=== PATIENT | male | born 1970 | race Caucasian/White ===

== ENCOUNTER 2018-08-21 06:42 | Day surgery (SDC) | payer OTHER, MEDICARE, MEDICAID ==
[~2018-08-21] VITALS: Ht 165.1 cm; Wt 79.5 kg
[~2018-08-21 06:42] MED LIST: ACET-784 PO; ATOR10TA84 PO; CALC-1062 PO; CHLO4TAB96 PO; DENO60DI SQ; DIPH25 PO; DOCU250C91 PO; IBUP-2070 PO; LACT30L PO; LAMO25 PO; LINA145C PO; LOSA50TA64 PO; MULT-1203 PO; RINGERS SOLUTION,LACTATED 1,000 ML IV ONE; SENN8.6T90 PO; [UNRECOGNIZED DRUG - CODE] PO
[2018-08-21] MEDS ORDERED: RINGERS SOLUTION,LACTATED 1,000 ML IV ONE (07:00)
[2018-08-21 07:52] LABS: BASOPHILS % (AUTO) 0.4 % (0.0-2.0); HEMATOCRIT 38.4 % (41-53); HEMOGLOBIN 12.8 g/dL (13.5-17.5); LYMPHOCYTES # (AUTO) 1.7 K/uL (1.0-4.8); LYMPHOCYTES % (AUTO) 25.5 % (22.0-44.0); MEAN CORPUSCULAR HEMOGLOBIN 28.2 pg (26.0-34.0); MEAN CORPUSCULAR HGB CONC 33.3 G/dL (31.0-37.0); MEAN CORPUSCULAR VOLUME 85 fL (80-100); MONOCYTES # (AUTO) 0.6 K/uL (0.1-1.0); MONOCYTES % (AUTO) 9.4 % (2.0-9.0); NEUTROPHILS % (AUTO) 62.7 % (40.0-70.0); PLATELET COUNT (AUTO) 255 K/uL (150-450); RED BLOOD CELL COUNT(AUTO) 4.55 MIL/uL (4.50-5.90); RED CELL DISTRIBUTION WIDTH 12.8 % (11.5-14.5)
[2018-08-21 08:06] LABS: INR 0.9 (0.9-1.1); PROTHROMBIN TIME 9.8 SEC (9.4-11.6)
[2018-08-21 08:19] LABS: ANION GAP 10 mmol/L (8-16); CALCIUM, TOTAL 9.4 mg/dL (8.8-10.5); CARBON DIOXIDE 27 mmol/L (22-29); CHLORIDE 101 mmol/L (98-107); CREATININE 1.05 mg/dL (0.60-1.30); GLOMERULAR FILTR. RATE CALC > 60 mL/min (>60); GLUCOSE,RANDOM 89 mg/dL (70-110); POTASSIUM 4.1 mmol/L (3.5-5.1); SODIUM SERUM 138 mmol/L (136-145); UREA NITROGEN, BLOOD 18 mg/dL (7-18)
[2018-08-21 08:25] LABS: ALANINE AMINOTRANSFERASE 39 U/L (12-78); ALBUMIN 4.5 g/dL (3.4-5.0); ALKALINE PHOSPHATASE 109 U/L (46-116); ASPARTATE AMINOTRANSFERASE 25 U/L (15-37); BILIRUBIN,TOTAL 0.3 mg/dL (0.1-1.0)
[2018-08-21] MEDS ORDERED: PROPOFOL 1% 20 ML VIAL IVP ONE (12:00)
[2018-08-21] MEDS ORDERED: FentaNYL CITRATE-PF 100 MCG/2 ML VIAL IVP ONE (12:00)
[2018-08-21] MEDS ORDERED: MIDAZOLAM HCL 2 MG/2 ML VIAL IVP ONE (12:00)
[2018-08-21] MEDS ORDERED: LIDOCAINE/PF 2% 5 ML VIAL INJ ONE (12:00)
== END 2018-08-21 15:55 | disposition home or self-care (01) ==
LOC: SURGERY 06:42
PROVIDERS: ATTEND Dentist General Practice
DX: K05.30 Chronic periodontitis, unspecified (principal); K03.6 Deposits [accretions] on teeth; K03.89 Other specified diseases of hard tissues of teeth; I10 Essential (primary) hypertension; G40.909 Epilepsy, unspecified, not intractable, without status epilepticus; Z98.890 Other specified postprocedural states; M81.0 Age-related osteoporosis without current pathological fracture; D64.9 Anemia, unspecified; K21.9 Gastro-esophageal reflux disease without esophagitis; E66.3 Overweight
CPT/HCPCS: 36415; 41899; 71045; 80053; 85025; 85610; 85730; 93005; J2250; J2704; J3010; J3490; J7120

== ENCOUNTER → 2020-05-26 | Day surgery (SDC) | payer OTHER, MEDICARE, MEDICAID ==
[~2020-05-26] VITALS: Ht 165.1 cm; Wt 68.0 kg
[~2020-05-26] MED LIST changes: +AMPICILLIN SODIUM 1 GM/VIAL ONE; +DOCU-350 PO; -DOCU250C91 PO; +FentaNYL CITRATE PF 100 MCG/2 ML VIAL IVP ONE; +FentaNYL CITRATE PF 100 MCG/2 ML VIAL IVP PRN; +HYDROmorphone 2 MG/ML VIAL IVP PRN; -LAMO25 PO; +LAMO25TA25 PO; +LIDOCAINE/PF 2% 5 ML VIAL IM ONE; +LOSA50TA37 PO; -LOSA50TA64 PO; +MIDAZOLAM HCL 2 MG/2 ML VIAL IVP ONE; +ONDANSETRON HCL 4 MG/2 ML VIAL IVP ONE; +OXYGEN THERAPY IH SCH; +PROPOFOL 1% 20 ML VIAL IVP ONE; +SODIUM CHLORIDE 0.9% 0 ML ONE
[2020-05-26 07:35] LABS: BASOPHILS % (AUTO) 0.6 % (0.0-2.0); EOSINOPHILS % (AUTO) 1.3 % (1.0-6.0); HEMATOCRIT 37.3 % (41-53); HEMOGLOBIN 12.4 g/dL (13.5-17.5); LYMPHOCYTES # (AUTO) 1.9 K/uL (1.0-4.8); LYMPHOCYTES % (AUTO) 29.8 % (22.0-44.0); MEAN CORPUSCULAR HGB CONC 33.3 G/dL (31.0-37.0); MEAN CORPUSCULAR VOLUME 84 fL (80-100); MONOCYTES # (AUTO) 0.6 K/uL (0.1-1.0); NEUTROPHILS # (AUTO) 3.8 K/uL (1.8-7.7); NEUTROPHILS % (AUTO) 59.3 % (40.0-70.0); PLATELET COUNT (AUTO) 279 K/uL (150-450); RED BLOOD CELL COUNT(AUTO) 4.43 MIL/uL (4.50-5.90); RED CELL DISTRIBUTION WIDTH 13.2 % (11.5-14.5)
[2020-05-26 07:46] LABS: PROTHROMBIN TIME 10.3 SEC (9.4-11.6)
[2020-05-26 07:47] LABS: ANION GAP 11 mmol/L (8-16); CALCIUM, TOTAL 9.7 mg/dL (8.8-10.5); CARBON DIOXIDE 25 mmol/L (22-29); CHLORIDE 105 mmol/L (98-107); GLOMERULAR FILTR. RATE CALC > 60 mL/min (>60); GLUCOSE,RANDOM 95 mg/dL (70-110); POTASSIUM 4.2 mmol/L (3.5-5.1); SODIUM SERUM 141 mmol/L (136-145); UREA NITROGEN, BLOOD 22 mg/dL (7-18)
[2020-05-26 08:24] LABS: COVID AG,FIA SOURCE NASOPHARYNGEAL
== END | disposition home or self-care (01) ==
LOC: SURGERY 06:56
PROVIDERS: ATTEND Dentist General Practice
DX: K05.30 Chronic periodontitis, unspecified (principal); K03.6 Deposits [accretions] on teeth; M81.0 Age-related osteoporosis without current pathological fracture; F41.9 Anxiety disorder, unspecified; K59.09 Other constipation; E78.5 Hyperlipidemia, unspecified; I10 Essential (primary) hypertension; G40.909 Epilepsy, unspecified, not intractable, without status epilepticus; Z79.899 Other long term (current) drug therapy; Z98.890 Other specified postprocedural states; Z20.822 Contact with and (suspected) exposure to COVID-19
CPT/HCPCS: 36415; 41899; 71045; 80048; 85025; 85610; 85730; 87426; 93005; C9803; J0290; J2250; J2405; J2704; J3010; J3490; J7120; J7050

== ENCOUNTER 2022-02-15 06:46 | Day surgery (SDC) | payer OTHER, MEDICARE, MEDICAID ==
[~2022-02-15] VITALS: Ht 160 cm; Wt 69.9 kg
[~2022-02-15 06:46] MED LIST changes: -AMPICILLIN SODIUM 1 GM/VIAL ONE; +ATOR10TA PO; -ATOR10TA84 PO; -FentaNYL CITRATE PF 100 MCG/2 ML VIAL IVP ONE; -FentaNYL CITRATE PF 100 MCG/2 ML VIAL IVP PRN; -HYDROmorphone 2 MG/ML VIAL IVP PRN; +LACT10SO10 PO; -LACT30L PO; -LIDOCAINE/PF 2% 5 ML VIAL IM ONE; +LOSA-382 PO; -LOSA50TA37 PO; -MIDAZOLAM HCL 2 MG/2 ML VIAL IVP ONE; -ONDANSETRON HCL 4 MG/2 ML VIAL IVP ONE; -OXYGEN THERAPY IH SCH; -PROPOFOL 1% 20 ML VIAL IVP ONE; -RINGERS SOLUTION,LACTATED 1,000 ML IV ONE; -SODIUM CHLORIDE 0.9% 0 ML ONE
[2022-02-15] MEDS ORDERED: SODIUM CHLORIDE 0.9% 1,000 ML IV ONE (07:00)
[2022-02-15] MEDS ORDERED: AMPICILLIN SODIUM 2 GM/NS 100 ML IV ONE (07:37)
[2022-02-15 07:41] LABS: BASOPHILS % (AUTO) 0.6 % (0.0-2.0); EOSINOPHILS % (AUTO) 1.4 % (1.0-6.0); HEMOGLOBIN 12.6 g/dL (13.5-17.5); LYMPHOCYTES # (AUTO) 1.5 K/uL (1.0-4.8); LYMPHOCYTES % (AUTO) 25.9 % (22.0-44.0); MEAN CORPUSCULAR HEMOGLOBIN 28.3 pg (26.0-34.0); MEAN CORPUSCULAR HGB CONC 34.1 G/dL (31.0-37.0); MEAN CORPUSCULAR VOLUME 83 fL (80-100); MONOCYTES # (AUTO) 0.5 K/uL (0.1-1.0); MONOCYTES % (AUTO) 8.9 % (2.0-9.0); NEUTROPHILS # (AUTO) 3.6 K/uL (1.8-7.7); NEUTROPHILS % (AUTO) 63.2 % (40.0-70.0); PLATELET COUNT (AUTO) 260 K/uL (150-450); RED BLOOD CELL COUNT(AUTO) 4.45 MIL/uL (4.50-5.90); RED CELL DISTRIBUTION WIDTH 13.8 % (11.5-14.5)
[2022-02-15] MEDS ORDERED: SODIUM CHLORIDE 0.9% 1,000 ML ONE (07:41)
[2022-02-15 07:50] LABS: ANION GAP 7 mmol/L (8-16); CALCIUM, TOTAL 10.1 mg/dL (8.8-10.5); CARBON DIOXIDE 28 mmol/L (22-29); CHLORIDE 101 mmol/L (98-107); CREATININE 1.15 mg/dL (0.60-1.30); GLUCOSE,RANDOM 92 mg/dL (70-110); POTASSIUM 4.2 mmol/L (3.5-5.1); SODIUM SERUM 136 mmol/L (136-145); UREA NITROGEN, BLOOD 15 mg/dL (7-18)
[2022-02-15 07:51] LABS: GLOMERULAR FILTR. RATE CALC > 60 mL/min (>60)
[2022-02-15 07:54] LABS: INR 0.9 (0.9-1.1); PROTHROMBIN TIME 9.8 SEC (9.4-11.6)
[2022-02-15 08:02] LABS: COVID AG,FIA SOURCE NASAL SWAB
[2022-02-15] MEDS ORDERED: RINGERS SOLUTION,LACTATED 1,000 ML IV ONE ×2 (08:24→08:30)
[2022-02-15] MEDS ORDERED: FentaNYL CITRATE PF 100 MCG/2 ML VIAL IV ONE (12:00)
== END 2022-02-15 13:50 | disposition home or self-care (01) ==
LOC: SURGERY 06:46
PROVIDERS: ATTEND Dentist General Practice
DX: K05.30 Chronic periodontitis, unspecified (principal); K02.9 Dental caries, unspecified; I10 Essential (primary) hypertension; K03.89 Other specified diseases of hard tissues of teeth; Z79.899 Other long term (current) drug therapy; Z98.890 Other specified postprocedural states; Z79.01 Long term (current) use of anticoagulants
CPT/HCPCS: 41899; 71045; 87426; 80048; 85025; 85610; 85730; 36415; 93005; J0290; J3010; J7120; J7030; C9803

== ENCOUNTER 2023-12-26 06:45 | Day surgery (SDC) | payer OTHER, MEDICARE ==
[~2023-12-26] VITALS: Ht 165.1 cm; Wt 61.3 kg
[~2023-12-26 06:45] MED LIST changes: +CHLO4TAB PO; -CHLO4TAB96 PO; +DIPH-1243 PO; -DIPH25 PO; -DOCU-350 PO; +DOCU-412 PO; +IBUP-1492 PO; -IBUP-2070 PO; -LACT10SO10 PO; -LAMO25TA25 PO; +LAMO25TA36 PO; -SENN8.6T90 PO
[2023-12-26] MEDS ORDERED: RINGERS SOLUTION,LACTATED 1,000 ML IV ONE ×2 (07:20→11:05)
[2023-12-26 07:42] LABS: BASOPHILS % (AUTO) 0.5 % (0.0-2.0); EOSINOPHILS % (AUTO) 2.9 % (1.0-6.0); HEMATOCRIT 38.5 % (41-53); HEMOGLOBIN 12.9 g/dL (13.5-17.5); LYMPHOCYTES % (AUTO) 27.5 % (22.0-44.0); MEAN CORPUSCULAR HEMOGLOBIN 28.3 pg (26.0-34.0); MEAN CORPUSCULAR HGB CONC 33.5 G/dL (31.0-37.0); MEAN CORPUSCULAR VOLUME 85 fL (80-100); MONOCYTES # (AUTO) 0.7 K/uL (0.1-1.0); MONOCYTES % (AUTO) 10.3 % (2.0-9.0); NEUTROPHILS # (AUTO) 4.2 K/uL (1.8-7.7); NEUTROPHILS % (AUTO) 58.8 % (40.0-70.0); PLATELET COUNT (AUTO) 312 K/uL (150-450); RED BLOOD CELL COUNT(AUTO) 4.55 MIL/uL (4.50-5.90); RED CELL DISTRIBUTION WIDTH 12.9 % (11.5-14.5); WHITE BLOOD COUNT (AUTO) 7.1 K/uL (4.5-11.0)
[2023-12-26 07:53] LABS: ANION GAP 11 mmol/L (8-16); CALCIUM, TOTAL 9.7 mg/dL (8.8-10.5); CARBON DIOXIDE 26 mmol/L (22-29); CHLORIDE 101 mmol/L (98-107); CREATININE 1.01 mg/dL (0.60-1.30); GLOMERULAR FILTR. RATE CALC > 60 mL/min (>60); GLUCOSE,RANDOM 92 mg/dL (70-110); POTASSIUM 4.3 mmol/L (3.5-5.1); SODIUM SERUM 138 mmol/L (136-145); UREA NITROGEN, BLOOD 16 mg/dL (7-18)
[2023-12-26 08:00] LABS: ALANINE AMINOTRANSFERASE 28 U/L (12-78); ALBUMIN 4.3 g/dL (3.4-5.0); ALKALINE PHOSPHATASE 145 U/L (46-116); ASPARTATE AMINOTRANSFERASE 19 U/L (15-37); BILIRUBIN,TOTAL 0.4 mg/dL (0.1-1.0)
[2023-12-26] MEDS ORDERED: AMPICILLIN SODIUM 2 GM/NS 100 ML IV ONE (08:06)
[2023-12-26 08:17] LABS: PROTHROMBIN TIME 10.2 SEC (9.4-11.6)
[2023-12-26] MEDS: RINGERS SOLUTION,LACTATED 1,000 ML IV ONE (09:11)
== END 2023-12-26 13:05 | disposition home or self-care (01) ==
LOC: SURGERY 06:45
PROVIDERS: ATTEND Dentist General Practice
DX: K02.9 Dental caries, unspecified (principal); K05.6 Periodontal disease, unspecified; E78.00 Pure hypercholesterolemia, unspecified; M81.0 Age-related osteoporosis without current pathological fracture; Z98.818 Other dental procedure status
CPT/HCPCS: 71045; 80053; 85025; 85610; 85730; 93005; J0290; J7120; 36415-L1; 36415-TC